=== PATIENT | male | born 1990 | race Caucasian/White ===

== ENCOUNTER → 2022-08-20 14:27 | Outpatient (BNVA) | payer MEDICARE, OTHER, SELFPAY | PROVIDERS: PCP Internal Medicine; Visit Provider Nurse Practitioner Family | DX: Z01.818 Encounter for other preprocedural examination (principal); F41.8 Other specified anxiety disorders | CPT/HCPCS: 99202 ==

== ENCOUNTER → 2022-10-02 15:32 | Outpatient (BNVA) | payer OTHER, SELFPAY | PROVIDERS: PCP Internal Medicine; Visit Provider Urology | DX: F41.8 Other specified anxiety disorders (principal) | CPT/HCPCS: 55250 ==